=== PATIENT | female | born 1985 | race African-American/Black ===

== ENCOUNTER 2018-04-10 11:12 | Emergency (ER) | payer OTHER ==
[~2018-04-10] VITALS: Ht 160 cm; Wt 88.5 kg
[2018-04-10] MEDS ORDERED: ONDANSETRON HCL INJ 2 MG/ML VIAL IV STA (12:11)
[2018-04-10] MEDS ORDERED: SODIUM CHLORIDE 0.9% 1000ML 1,000 ML IV STA (12:11)
[2018-04-10] MEDS ORDERED: KETOROLAC TROMETHAMINE 30 MG/ML VIAL IV STA (12:11)
[2018-04-10] MEDS ORDERED: HALOPERIDOL LACTATE 5 MG/ML VIAL IV ONE (12:15)
--- NOTE | 2018-04-10 12:15 | Diagnostic Imaging Report ---
Examination: CT BRAIN WO History:Headache, neck pain left-sided tingling Comparison studies:None Technique: Axial images were obtained from the skull base to the vertex. Coronal and sagittal images reconstructed from the axial data. Intravenous contrast: None Findings: Scalp: No abnormalities. Bones: No fractures, blastic or lytic lesions. Brain sulci: Appropriate for age. Ventricles: Normal in size and configuration. No hydrocephalus. Extra-axial space: No abnormalities. Parenchyma: No abnormal densities. No masses, hemorrhage, acute or chronic vascular insults. Sellar/suprasellar region: No abnormalities. Craniocervical junction: Patent foramen magnum. No Chiari one malformation. Incidental findings: None. Impression: No intracranial abnormalities. Preliminary report provided by Dr. Vinicius Wong, neuroradiology fellow, on 04/10/2018 at 1214 hours. The images and preliminary report were reviewed and signed by Dr. Mary Segovia, neuroradiology faculty, on 04/10/2018 at 1519 hours. Signed by: Dr. Mary Segovia M.D. on 04/10/2018 3:20 PM
[2018-04-10 14:45] LABS: BASOPHILS % 0.7 % (0.0-1.0); EOSINOPHILS # (AUTO) 0.1 (0.0-0.4); EOSINOPHILS % 1.4 % (0.0-6.0); HEMATOCRIT 41.2 % (34.2-44.1); HEMOGLOBIN 14.1 g/dL (12.0-16.0); LYMPHOCYTES # (AUTO) 1.7 (1.0-3.2); LYMPHOCYTES % 30.4 % (18.0-39.1); MEAN CORPUSCULAR HEMOGLOBIN 32.3 pg (28-32); MEAN CORPUSCULAR HGB CONC 34.2 g/dL (31-35); MEAN CORPUSCULAR VOLUME 94.3 fL (81-99); MONOCYTES # (AUTO) 0.4 (0.2-0.8); MONOCYTES % 6.3 % (4.4-11.3); NEUTROPHILS # (AUTO) 3.4 (2.1-6.9); PLATELET COUNT 309 x10e3/uL (140-360); RED BLOOD COUNT 4.37 x10e6/uL (3.6-5.1)
[2018-04-10 15:24] LABS: ANION GAP 12.9 mmol/L (8-16); BLOOD UREA NITROGEN 6 mg/dL (7-26); BUN/CREATININE RATIO 10 (6-25); CALCIUM 9.1 mg/dL (8.4-10.2); CARBON DIOXIDE 25 mmol/L (22-29); CHLORIDE 104 mmol/L (98-107); CREATININE, SERUM 0.63 mg/dL (0.57-1.11); EST GLOMERULAR FILTRATION RATE > 60 ML/MIN (60-); GLUCOSE 78 mg/dL (74-118); POTASSIUM 3.9 mmol/L (3.5-5.1); SODIUM 138 mmol/L (136-145)
== END 2018-04-10 15:58 | disposition home or self-care (01) ==
LOC: ER 11:12
CPT/HCPCS: 36415; 70450; 80048; 85025; 99284; J1630; J1885; J7030